=== PATIENT | female | born 1955 | race Two or more races ===

== ENCOUNTER 2020-08-22 16:00 | Emergency (ER) | payer MEDICAID ==
[~2020-08-22] VITALS: Ht 160 cm; Wt 59.0 kg
--- NOTE | 2020-08-22 16:00 | NUR ---
ED Nurse Note: walked in to ed c/o body ache and cough x 4 days. 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 pt lives in a residential living and states there are two people who tested positive in the property. denies sob at this time. 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
[2020-08-22] MEDS ORDERED: LEVOTHYROXINE125 MCG ORAL (16:50)
--- NOTE | 2020-08-22 16:59 | Emergency Room Report ---
History of Present Illness General Chief Complaint: Flu Like Symptoms Source: Patient Present Illness HPI Patient had 2 people test positive in her home. This happened on Wednesday. She started to feel ill weak and with a nonproductive cough. She has muscle aches. She has been taking Tylenol. She denies documented fever. The cough is nonproductive. She denies any pleuritic chest pain. She also feels weakness and malaise. There is some nausea but no vomiting. The patient denies any diarrhea and states her stools have been normal. She denies dysuria. There is no abdominal pain. The patient has hypothyroidism and takes levothyroxine. No sore throat, palpitations, shortness of breath, rashes, depression, anxiety, visual changes, dizziness, headache. 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 Reviewed Nursing Documentation: PMH: Agreed; PSxH: Agreed Review of Systems All Other Systems: negative except mentioned in HPI Physical Exam Vital Signs Date Time Temp Pulse Resp B/P (MAP) Pulse Ox O2 Delivery O2 Flow Rate FiO2 08/22/20 16:00 98.4 79 20 144/90 (108) 99 Room Air Sp02 EP Interpretation: reviewed, normal General Appearance: well appearing, no apparent distress, GCS 15 Head: normocephalic Eyes: bilateral eye normal inspection, bilateral eye PERRL, bilateral eye EOMI ENT: normal pharynx, no angioedema, moist mucus membranes Neck: full range of motion, supple Respiratory: chest non-tender, lungs clear, normal breath sounds Cardiovascular #1: regular rate, rhythm, no edema Cardiovascular #2: 2+ radial (R) Gastrointestinal: normal inspection, normal bowel sounds, non tender, no mass, non-distended Genitourinary: no CVA tenderness Musculoskeletal: back normal, normal range of motion, no calf tenderness, gait/station normal Neurologic: alert, oriented x3, grossly normal Psychiatric: mood/affect normal Skin: no rash, warm/dry Medical Decision Making Diagnostic Impression: Primary Impression: Upper respiratory tract infection due to COVID-19 virus ER Course Patient presents with upper respiratory symptoms and exposure to COVID-19. Patient's vital signs are stable and no further testing is needed at this time. This patient was evaluated in the context of the global COVID-19 pandemic, which necessitated consideration that the patient might be at risk for infection with the [id number] virus that causes COVID-19. Institutional protocols and algorithms that pertain to the evaluation of patients at risk for COVID-19 and t he state of rapid change based on information released by multiple regulatory bodies including the CDC and federal and state organizations. These policies and algorithms were followed during the patient's care in the ED. Discussed diagnosis with patient and treatment plan. Discussed reasons for needing to come back to the emergency department. Advised patient to follow-up with her own doctor. Last Vital Signs Date Time Temp Pulse Resp B/P (MAP) Pulse Ox O2 Delivery O2 Flow Rate FiO2 08/22/20 17:06 98.4 20 144/90 99 Room Air 08/22/20 17:06 79 Status: unchanged Disposition: HOME, SELF-CARE Condition: Stable Scripts Guaifenesin/Codeine Phos* (ROBITUSSIN AC*) 118 Ml Liquid 5 ML ORAL Q6H PRN for For Cough, #60 ML 0 Refills Prov: Ruperto Washburn MD 08/22/20 Ibuprofen* (MOTRIN*) 600 Mg Tablet 600 MG ORAL Q8H PRN for FOR PAIN or Fever, #20 TAB 0 Refills Prov: Ruperto Washburn MD 08/22/20 Referrals: NON PHYSICIAN (PCP) Ruperto Washburn MD Aug 22, 2020 16:59
--- NOTE | 2020-08-22 17:00 | NUR ---
ER DISCHARGE NOTE: Patient is cleared to be discharged per ERMD, pt is aox4, on room air, with stable vital signs. pt was given dc and prescription instructions, pt was able to verbalize understanding, pt id band removed without complications. pt is able to ambulate with steady gait. pt took all belongings.
[2020-08-22] MEDS ORDERED: GUAIFENESIN-CO118 M1 ORAL (17:01)
[2020-08-22] MEDS ORDERED: IBUPROFEN600 M1 ORAL (17:01)
[2020-08-22 17:06] VITALS: BP 144/90
== END 2020-08-22 17:00 | disposition home or self-care (01) ==
LOC: EMR 16:46
DX: U07.1 COVID-19 (principal); J06.9 Acute upper respiratory infection, unspecified; Z88.8 Allergy status to other drugs, medicaments and biological substances
CPT/HCPCS: 99282